=== PATIENT | female | born 1985 | race Two or more races ===

== ENCOUNTER 2023-02-20 04:04 | Inpatient (IN) | payer OTHER ==
[~2023-02-20] VITALS: Ht 152.4 cm; Wt 4.1 kg
[~2023-02-20 04:04] MED LIST: PRENATAL1 TAB PO; PROMETRIUM200 MG PO
[2023-02-20] MEDS ORDERED: NIFEDIPINE20 MG PO (04:40)
[2023-02-20] MEDS ORDERED: CHILDREN'S1 MG/1 M4 (04:40)
[2023-02-20] MEDS ORDERED: LEVEMIR100 UNIT/1 (05:35)
[2023-02-20] MEDS ORDERED: HUMALOG100 UNIT/2 SUBCUTANEO (05:35)
== END 2023-02-22 12:05 | disposition home or self-care (01) | DRG 786 ==
LOC: LDR 04:04 → OB/GYN 04:04
PROVIDERS: ADMIT Specialist; ATTEND Specialist
PROC: 4A1HXCZ Monitoring of Products of Conception, Cardiac Rate, External Approach (ICD-10-PCS; 2023-02-20)
PROC: 10D00Z1 Extraction of Products of Conception, Low, Open Approach (ICD-10-PCS; principal; 2023-02-20 07:45)
DX: O32.2XX0 Maternal care for transverse and oblique lie, not applicable or unspecified (principal); O24.82 Other pre-existing diabetes mellitus in childbirth; O36.63X0 Maternal care for excessive fetal growth, third trimester, not applicable or unspecified; E11.9 Type 2 diabetes mellitus without complications; Z3A.40 40 weeks gestation of pregnancy; Z37.0 Single live birth; Z79.4 Long term (current) use of insulin; Z20.822 Contact with and (suspected) exposure to COVID-19